=== PATIENT | male | born 1935 | race Caucasian/White ===

== ENCOUNTER 2016-12-24 16:37 | Inpatient (IN) | payer OTHER ==
[~2016-12-24] VITALS: Ht 172.7 cm; Wt 97.8 kg
[~2016-12-24 16:37] MED LIST: ACTOS30 MG PO; ALTACE10 MG PO; AMPICILLIN SODIU1 GM IV; ASPERDRINK81 MG PO; ASPIR 8181 M1 PO; ASPIR-LOW81 MG PO; ASPIRIN81 M2 PO; CENTRUM SILVER1 EAC1 PO; Cardizem CD,Cartia X PO; DIABETA5 MG PO; DILAUDID2 MG PO; DILTIAZEM 24HR120 MG PO; FINASTERIDE5 MG PO; GLUCOPHAGE1000 MG PO; GLYBURIDE5 MG; GLYBURIDE5 MG PO; HYDROCODON-ACE1 EAC7 PO; MEDROL DOSEPAK4 MG PO; NAPROSYN500 MG PO; PRILOSEC40 MG PO; PROSCAR5 MG PO; RAMIPRIL10 MG PO; SIMVASTATIN40 MG PO; SIMVASTATIN80 MG PO; TAZTIA XT120 M1 PO; ULTRAM50 MG PO; VALIUM5 MG PO; ZOCOR20 MG PO; ZOCOR40 MG PO; ZOCOR80 MG PO
[2016-12-24 18:14] LABS: HEMATOCRIT 42.3 % (38.0-50.0); MCH 27.8 PG (29.0-34.0); MCHC 32.2 G/DL (30.0-36.0); MCV 86.5 FL (86-99); MEAN PLAT.VOLUME 9.3 uM^3 (9.0-12.4); PLATELET COUNT 198 K/uL (156-360); RED BLOOD COUNT 4.89 M/uL (4.00-5.50); WHITE BLOOD COUNT 11.2 K/uL (4.1-10.2)
[2016-12-24 18:22] LABS: CHLORIDE 108 mEq/L (99-109); POTASSIUM 3.8 mEq/L (3.7-5.4); SODIUM 141 mEq/L (136-147)
[2016-12-24 18:24] LABS: GLUCOSE 204 mg/dL (70-99)
[2016-12-24 18:26] LABS: ANION GAP 13 MEQ/L (2-14)
[2016-12-24 18:28] LABS: GFR ESTIMATE (CALCULATED) 44 mL/min/
[2016-12-24 18:29] LABS: UREA NITROGEN (BUN) 19 mg/dL (9-23)
[2016-12-24 18:34] LABS: TROP-I INTERPRETATION NEGATIVE; TROPONIN-I 0.02 ng/mL (0.0-0.30)
[2016-12-24] MEDS ORDERED: LOW DOSE ASPIRI81 M1 PO (20:06)
[2016-12-24] MEDS ORDERED: TRICOR145 MG PO (20:06)
[2016-12-24] MEDS ORDERED: QUESTRAN POWDE378 GM PO (20:07)
[2016-12-25 01:09] VITALS: BP 152/72
[2016-12-25 04:27] LABS: METH RESISTANT S AUREUS PCR NEGATIVE (NEGATIVE)
[2016-12-25 04:33] LABS: PROBE CHECK PASS; SPECIMEN PROCESSING CONTROL PASS
[2016-12-25 06:03] LABS: ALKALINE PHOSPHATASE 38 IU/L (3-129); ANION GAP 7 MEQ/L (2-14); CHLORIDE 112 MEQ/L (99-109); SAMPLE HEMOLYSIS CHECK 1; SAMPLE ICTERIC CHECK 0; SAMPLE LIPEMIA CHECK 0; SODIUM 141 MEQ/L (136-147); TOTAL BILIRUBIN 0.4 MG/DL (0.0-1.0); UREA NITROGEN (BUN) 15 mg/dL (9-23)
[2016-12-25 06:06] LABS: GFR ESTIMATE (CALCULATED) > 59 mL/min/; GLUCOSE 71 mg/dL (70-99); POTASSIUM 3.6 MEQ/L (3.7-5.4)
[2016-12-25 06:30] VITALS: BP 153/76
[2016-12-25 16:55] VITALS: BP 165/77
[2016-12-25 19:43] VITALS: BP 139/66; BP 142/65
[2016-12-25 19:46] VITALS: BP 153/67
[2016-12-25 22:08] LABS: POINT-OF-CARE METER ID UU14188577
[2016-12-25 23:31] VITALS: BP 165/71
[2016-12-26] VITALS: BP 145/78
[2016-12-26 03:06] VITALS: BP 146/68
[2016-12-26 06:57] LABS: POINT-OF-CARE METER ID UU14188577
[2016-12-26 08:02] VITALS: BP 118/62
[2016-12-26 09:24] LABS: ANION GAP 8 MEQ/L (2-14); CHLORIDE 108 MEQ/L (99-109); GFR ESTIMATE (CALCULATED) > 59 mL/min/; POTASSIUM 3.8 MEQ/L (3.7-5.4); SAMPLE HEMOLYSIS CHECK 0; SAMPLE ICTERIC CHECK 0; SAMPLE LIPEMIA CHECK 0; SODIUM 139 MEQ/L (136-147); UREA NITROGEN (BUN) 7 mg/dL (9-23)
[2016-12-26 09:25] LABS: GLUCOSE 148 mg/dL (70-99)
[2016-12-26 09:27] LABS: HEMATOCRIT 37.6 % (38.0-50.0); MCHC 31.9 G/DL (30.0-36.0); MCV 87.9 FL (86-99); MEAN PLAT.VOLUME 9.8 uM^3 (9.0-12.4); PLATELET COUNT 145 K/uL (156-360); RBC DIS.WIDTH-CV 14.8 % (11.8-14.6); RBC DIS.WIDTH-SD 47.8 % (39-53); RED BLOOD COUNT 4.28 M/uL (4.00-5.50)
[2016-12-26 09:28] LABS: WHITE BLOOD COUNT 5.8 K/uL (4.1-10.2)
[2016-12-26 16:37] VITALS: BP 152/67
[2016-12-26 21:00] VITALS: BP 148/86
[2016-12-26 22:26] LABS: POINT-OF-CARE METER ID UU14188577
[2016-12-26 23:53] VITALS: BP 163/74
[2016-12-27 07:00] VITALS: BP 145/65
[2016-12-27 11:30] VITALS: BP 140/65
[2016-12-27 15:43] VITALS: BP 146/65
[2016-12-27 19:48] VITALS: BP 145/67
[2016-12-27 23:54] VITALS: BP 140/65
[2016-12-28 03:43] VITALS: BP 118/60
[2016-12-28 05:22] LABS: EOSINOPHIL (%) 3.4 % (0-5); EOSINOPHIL COUNT 0.2 K/uL (0-0.3); HEMATOCRIT 39.7 % (38.0-50.0); IMMATURE GRANULOCYTE (%) 0.4 % (0.0-0.7); LYMPHOCYTE COUNT 0.8 K/uL (1.0-2.8); MCH 28.2 PG (29.0-34.0); MCHC 32.2 G/DL (30.0-36.0); MCV 87.4 FL (86-99); MEAN PLAT.VOLUME 9.2 uM^3 (9.0-12.4); MONOCYTE (%) 8.4 % (3-12); MONOCYTE COUNT 0.6 K/uL (0-0.8); NEUTROPHIL (%) 74.9 % (45-76); PLATELET COUNT 162 K/uL (156-360); RBC DIS.WIDTH-CV 14.8 % (11.8-14.6); RBC DIS.WIDTH-SD 47.3 % (39-53); RED BLOOD COUNT 4.54 M/uL (4.00-5.50); WHITE BLOOD COUNT 6.7 K/uL (4.1-10.2)
[2016-12-28 05:51] LABS: ANION GAP 8 MEQ/L (2-14); CHLORIDE 105 MEQ/L (99-109); GFR ESTIMATE (CALCULATED) > 59 mL/min/; GLUCOSE 135 mg/dL (70-99); MAGNESIUM 1.9 mg/dl (1.3-2.7); POTASSIUM 3.9 MEQ/L (3.7-5.4); SAMPLE HEMOLYSIS CHECK 0; SAMPLE ICTERIC CHECK 0; SAMPLE LIPEMIA CHECK 0; SODIUM 139 MEQ/L (136-147); UREA NITROGEN (BUN) 9 mg/dL (9-23)
[2016-12-28 06:57] LABS: POINT-OF-CARE METER ID UU14149397
[2016-12-28 07:55] VITALS: BP 133/61
[2016-12-28 11:42] VITALS: BP 148/64
[2016-12-28 11:56] LABS: POINT-OF-CARE METER ID UU14188577
[2016-12-28 16:02] VITALS: BP 156/74
[2016-12-28 20:11] VITALS: BP 143/67
[2016-12-28 21:54] LABS: POINT-OF-CARE METER ID UU14149397
[2016-12-28 23:49] VITALS: BP 135/67
[2016-12-29 04:07] VITALS: BP 130/79
[2016-12-29 05:30] LABS: EOSINOPHIL (%) 3.7 % (0-5); EOSINOPHIL COUNT 0.2 K/uL (0-0.3); HEMATOCRIT 36.3 % (38.0-50.0); IMMATURE GRANULOCYTE (%) 0.3 % (0.0-0.7); INSTRUMENT ABS NEUTROPHIL CT 4.4 K/uL; LYMPHOCYTE COUNT 0.7 K/uL (1.0-2.8); MCH 28.1 PG (29.0-34.0); MCHC 32.2 G/DL (30.0-36.0); MCV 87.1 FL (86-99); MEAN PLAT.VOLUME 9.8 uM^3 (9.0-12.4); MONOCYTE (%) 9.8 % (3-12); MONOCYTE COUNT 0.6 K/uL (0-0.8); NEUTROPHIL (%) 73.9 % (45-76); NEUTROPHIL COUNT 4.4 K/uL (1.8-6.4); PLATELET COUNT 153 K/uL (156-360); RBC DIS.WIDTH-CV 14.9 % (11.8-14.6); RBC DIS.WIDTH-SD 47.6 % (39-53); RED BLOOD COUNT 4.17 M/uL (4.00-5.50); WHITE BLOOD COUNT 5.9 K/uL (4.1-10.2)
[2016-12-29 06:01] LABS: ALKALINE PHOSPHATASE 45 IU/L (3-129); ANION GAP 8 MEQ/L (2-14); CHLORIDE 107 MEQ/L (99-109); GFR ESTIMATE (CALCULATED) > 59 mL/min/; GLUCOSE 134 mg/dL (70-99); POTASSIUM 4.2 MEQ/L (3.7-5.4); SAMPLE HEMOLYSIS CHECK 0; SAMPLE ICTERIC CHECK 0; SAMPLE LIPEMIA CHECK 0; SODIUM 139 MEQ/L (136-147); TOTAL BILIRUBIN 0.5 MG/DL (0.0-1.0); UREA NITROGEN (BUN) 10 mg/dL (9-23)
[2016-12-29 07:14] LABS: Estimated Average Glucose 137 mg/dL (70-123); HEMOGLOBIN A1c (GLYCOHEMOGLOB) 6.4 % HGB (Below 5.7)
[2016-12-29 08:11] VITALS: BP 167/72
[2016-12-29] MEDS ORDERED: DICLOXACILLIN500 MG PO (11:09)
[2016-12-29 11:51] VITALS: BP 170/75
[2016-12-29 15:21] VITALS: BP 147/64
== END 2016-12-29 18:48 | disposition home or self-care (01) | DRG 603 ==
LOC: EME 16:37 → 3EAST 22:29 → EDOF 22:29 → 3EAST 12-25 00:05
PROVIDERS: Emergency Medicine; Hospitalist; Internal Medicine; Physician Assistant
DX: L03.116 Cellulitis of left lower limb (principal); N17.9 Acute kidney failure, unspecified; I50.30 Unspecified diastolic (congestive) heart failure; J90 Pleural effusion, not elsewhere classified; E86.0 Dehydration; E87.2 Acidosis; I47.1 Supraventricular tachycardia; I87.2 Venous insufficiency (chronic) (peripheral); K21.9 Gastro-esophageal reflux disease without esophagitis; E78.5 Hyperlipidemia, unspecified; E66.9 Obesity, unspecified; Z68.32 Body mass index [BMI] 32.0-32.9, adult; I10 Essential (primary) hypertension; E11.9 Type 2 diabetes mellitus without complications; I95.1 Orthostatic hypotension; Z96.659 Presence of unspecified artificial knee joint; Z86.14 Personal history of Methicillin resistant Staphylococcus aureus infection
CPT/HCPCS: 71010; 71020; 80048; 80053; 80202; 82948; 83036; 83605; 83735; 83880; 84484; 85025; 85027; 87040; 87641; 93005; 93306; 93971; 99281; 99285; J0295; J0696; J1644; J1815; J3370; J7030; J7050

== ENCOUNTER 2017-10-09 00:24 | Emergency (ER) | payer OTHER ==
[~2017-10-09] VITALS: Ht 172.7 cm; Wt 92.9 kg
[~2017-10-09 00:24] MED LIST changes: +DICLOXACILLIN500 MG PO; +LOW DOSE ASPIRI81 M1 PO; +QUESTRAN POWDE378 GM PO; +TRICOR145 MG PO
[2017-10-09] MEDS ORDERED: NORCO 5/3251 TABLET PO (01:35)
[2017-10-09 02:10] VITALS: BP 158/80
== END 2017-10-09 02:10 | disposition home or self-care (01) ==
LOC: EME 00:24
DX: S83.92XA Sprain of unspecified site of left knee, initial encounter (principal); W00.0XXA Fall on same level due to ice and snow, initial encounter; Z96.652 Presence of left artificial knee joint; I10 Essential (primary) hypertension; E78.00 Pure hypercholesterolemia, unspecified; Z88.5 Allergy status to narcotic agent; Z88.8 Allergy status to other drugs, medicaments and biological substances
CPT/HCPCS: 73564; 99281; 99283

== ENCOUNTER 2018-04-25 10:49 | Emergency (ER) | payer OTHER ==
[~2018-04-25] VITALS: Ht 172.7 cm; Wt 91.7 kg
[~2018-04-25 10:49] MED LIST changes: +NORCO 5/3251 TABLET PO
[2018-04-25 11:28] LABS: BASOPHIL (%) 0.4 % (0-1); EOSINOPHIL COUNT 0.2 K/uL (0-0.3); HEMATOCRIT 39.7 % (38.0-50.0); HEMOGLOBIN 13.4 G/DL (12.5-16.6); IMMATURE GRANULOCYTE (%) 0.4 % (0.0-0.7); LYMPHOCYTE (%) 17.8 % (15-42); MCH 30.2 PG (29.0-34.0); MCHC 33.8 G/DL (30.0-36.0); MCV 89.6 FL (86-99); MONOCYTE (%) 7.4 % (3-12); MONOCYTE COUNT 0.8 K/uL (0-0.8); NEUTROPHIL COUNT 7.9 K/uL (1.8-6.4); PLATELET COUNT 165 K/uL (156-360); RED BLOOD COUNT 4.43 M/uL (4.00-5.50); WHITE BLOOD COUNT 10.9 K/uL (4.1-10.2)
[2018-04-25 11:34] LABS: INTER. NORMALIZED RATIO 1.1
[2018-04-25 11:36] LABS: PTT 28.7 SEC (25-37)
[2018-04-25 12:02] LABS: CHLORIDE 106 MEQ/L (99-109); POTASSIUM 4.2 MEQ/L (3.7-5.4); SODIUM 138 MEQ/L (136-147)
[2018-04-25 12:07] LABS: CREATININE 0.7 MG/DL (0.6-1.3); GFR ESTIMATE (CALCULATED) > 59 mL/min/ (58.99-99999); GLUCOSE 118 mg/dL (70-99); UREA NITROGEN (BUN) 13 mg/dL (9-23)
[2018-04-25 12:45] LABS: TROP-I INTERPRETATION NEGATIVE; TROPONIN-I < 0.01 ng/mL (0.0-0.30)
[2018-04-25 13:34] VITALS: BP 139/68
== END 2018-04-25 13:35 | disposition home or self-care (01) ==
LOC: EME 10:49
PROVIDERS: Emergency Medicine
DX: R07.89 Other chest pain (principal); I48.91 Unspecified atrial fibrillation; E11.9 Type 2 diabetes mellitus without complications; I11.0 Hypertensive heart disease with heart failure; I50.9 Heart failure, unspecified; K21.9 Gastro-esophageal reflux disease without esophagitis; Z96.652 Presence of left artificial knee joint; Z90.49 Acquired absence of other specified parts of digestive tract; Z79.82 Long term (current) use of aspirin; Z88.5 Allergy status to narcotic agent
CPT/HCPCS: 71045; 80048; 84484; 85025; 85379; 85610; 85730; 93005; 99281; 99284